=== PATIENT | female | born 1985 | race Caucasian/White ===

== ENCOUNTER 2017-01-10 20:28 | Emergency (ER) | payer MEDICARE ==
[2017-01-10] MEDS ORDERED: HYDROMORPHONE HCL 1 MG/ML SYRINGE ONE (20:43)
[2017-01-10] MEDS ORDERED: KETOROLAC TROMETHAMINE 60 MG/2 ML VIAL ONE (20:43)
[2017-01-10] MEDS ORDERED: SODIUM CHLORIDE 0.9% 1,000 ML ONE (21:17)
[2017-01-10] MEDS ORDERED: PROPOFOL 20 ML IV ONE (21:17)
--- NOTE | 2017-01-11 08:06 | RAD ---
SHOULDER-RIGHT 2 OR MORE VIEWS COMPARISON: Right shoulder 4 views, 08/25/2016. Right shoulder MRI arthrogram, [facility], 05/19/2016. HISTORY: Status post reduction of right shoulder dislocation. FINDINGS: Views: Right shoulder AP and scapula Y Bones: Normal alignment between the humerus and the glenoid process, evidence of successful reduction of shoulder dislocation. No acute finding. Hill-Sachs deformity of the humerus. Joints: Normal. Soft tissues: Normal. IMPRESSION: 1. Normal alignment between the humerus and the glenoid process, evidence of successful reduction of shoulder dislocation. 2. 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
== END 2017-01-10 23:38 | disposition home or self-care (01) ==
LOC: ED 20:28
DX: M24.411 Recurrent dislocation, right shoulder (principal); E86.0 Dehydration; G40.909 Epilepsy, unspecified, not intractable, without status epilepticus
CPT/HCPCS: 73030; 99284 ×2; 23650 ×2; 96372 ×2; 96360; J1170; J1885; J7030